=== PATIENT | female | born 1935 | race Caucasian/White ===

== ENCOUNTER 2016-12-29 09:57 | Outpatient (CLI) | payer MEDICARE ==
[2016-12-29 12:42] LABS: #Basophils 0.1 thou/uL (0.0-0.2); #Eosinphils 0.2 thou/uL (0.0-0.7); #Lymphocytes 2.2 thou/uL (1.20-3.40); #Monocytes 0.2 thou/uL (0.11-0.59); #Neutrophils 2.5 thou/uL (1.40-6.50); %Basophils 2.2 % (0.0-1.0); %Eosinophils 3.3 % (0.0-10.0); %Lymphocytes 41.9 % (21.0-51.0); %Monocytes 4.6 % (0.0-10.0); Hematocrit 38.2 % (36.0-47.0); Mean Platelet Volume 6.6 fL (7.4-10.4); Red Blood Cell (RBC) Count 4.11 mill/uL (4.20-5.40); White Blood Cell (WBC) Count 5.1 thou/uL (4.8-10.8)
[2016-12-29 12:53] LABS: Hemoglobin A1c 5.3 % (4.0-6.0)
== END 2016-12-29 09:58 ==
LOC: NAVSJIPCSP 09:57
PROVIDERS: ATTEND Internal Medicine
DX: E78.5 Hyperlipidemia, unspecified (principal); J44.9 Chronic obstructive pulmonary disease, unspecified; E11.51 Type 2 diabetes mellitus with diabetic peripheral angiopathy without gangrene; D50.9 Iron deficiency anemia, unspecified; Z79.899 Other long term (current) drug therapy
CPT/HCPCS: 36415; 80061; 83036; 85025

== ENCOUNTER 2017-04-30 09:10 | Outpatient (CLI) | payer MEDICARE ==
[2017-04-30 12:28] LABS: #Basophils 0.1 thou/uL (0.0-0.2); #Eosinphils 0.2 thou/uL (0.0-0.7); #Monocytes 0.3 thou/uL (0.11-0.59); #Neutrophils 2.6 thou/uL (1.40-6.50); %Basophils 2.3 % (0.0-1.0); %Eosinophils 3.2 % (0.0-10.0); %Lymphocytes 38.8 % (21.0-51.0); %Neutrophils 49.6 % (42.0-75.0); Hemoglobin 11.5 g/dL (12.0-16.0); Mean Corpuscular HGB CONC 30.5 g/dL (32.0-36.0); Mean Corpuscular Hemoglobin 27.7 pg (27.0-31.0); Mean Corpuscular Volume 90.9 fl (81.0-99.0); Mean Platelet Volume 6.3 fL (7.4-10.4); Platelet Count 199 thou/uL (130-400); RBC Distribution Width 14.4 % (11.5-14.5); Red Blood Cell (RBC) Count 4.15 mill/uL (4.20-5.40); White Blood Cell (WBC) Count 5.2 thou/uL (4.8-10.8)
[2017-04-30 13:03] LABS: Hemoglobin A1c 5.6 % (4.0-6.0)
[2017-04-30 13:09] LABS: Cardiac Risk 2.2 (Less than 4.5)
== END 2017-04-30 09:11 ==
LOC: NAVSJIPCSP 09:10
PROVIDERS: ATTEND Internal Medicine
DX: E78.5 Hyperlipidemia, unspecified (principal); D50.9 Iron deficiency anemia, unspecified; E11.51 Type 2 diabetes mellitus with diabetic peripheral angiopathy without gangrene; Z79.899 Other long term (current) drug therapy
CPT/HCPCS: 36415; 80061; 83036; 85025

== ENCOUNTER 2021-05-16 10:40 | Inpatient (IN) | payer MEDICARE ==
[2021-05-16] MEDS ORDERED: ACETAMINOPHEN WITH CODEINE PO PRN (13:44)
[2021-05-16] MEDS: Gabapentin 300 MG CAP PO SCH ×2 (17:11→20:53)
[2021-05-16] MEDS: Budesonide 0.5 MG/2 ML NEB NEB SCH (18:20)
[2021-05-16] MEDS: Nicotine 7 MG PATCH TOP SCH (18:21)
[2021-05-16] MEDS: Enoxaparin Sodium 30 MG/0.3 ML SYRINGE SC SCH (20:53)
[2021-05-17] MEDS: Levothyroxine Sodium 75 MCG TAB PO SCH (05:59)
[2021-05-17] MEDS: Budesonide 0.5 MG/2 ML NEB NEB SCH ×2 (05:59→17:35)
[2021-05-17 06:50] LABS: Bilirubin Negative (Negative); Blood, Urine Negative (Negative); Clarity Slightly Cloudy (Clear); Glucose, Urine (Dipstick) Negative (Negative); Ketone, Urine Negative (Negative); Leukocyte Trace (Negative); Nitrite Negative (Negative); Protein, Urine (Dipstick) 30 mg/dL (Neg-Trace); pH, Urine 7.5 (5.0-9.0)
[2021-05-17 07:00] LABS: Bacteria/HPF 1+ HPF (None Seen); RBC/HPF None Seen HPF (0-3); Renal Epithelial 0-3 HPF (None Seen)
[2021-05-17 07:30] LABS: #Lymphocytes 1.3 thou/uL (1.20-3.40); #Monocytes 0.6 thou/uL (0.11-0.59); %Basophils 0.5 % (0.0-1.0); %Eosinophils 0.4 % (0.0-10.0); %Lymphocytes 14.5 % (21.0-51.0); %Monocytes 6.7 % (0.0-10.0); Hemoglobin 9.3 g/dL (12.0-16.0); Mean Corpuscular HGB CONC 31.8 g/dL (32.0-36.0); Mean Corpuscular Hemoglobin 30.4 pg (27.0-31.0); Mean Corpuscular Volume 95.3 fL (78.0-98.0); Mean Platelet Volume 7.6 fL (7.4-10.4); Platelet Count 201 thou/uL (130-400); RBC Distribution Width 14.3 % (11.5-14.5); Red Blood Cell (RBC) Count 3.05 mill/uL (4.20-5.40)
[2021-05-17 07:45] LABS: ALT (SGPT) 29 U/L (8-55); AST (SGOT) 25 U/L (5-34); Albumin 2.7 g/dL (3.4-4.8); Alkaline Phosphatase 75 U/L (40-110); Anion Gap 10 mmol/L (10-20); BUN (Urea Nitrogen) 27 mg/dL (9.8-20.1); Bilirubin, Total 1.2 mg/dL (0.2-1.2); Calc. Creatinine Clearance 37 mL/min (70-130); Calcium 8.4 mg/dL (7.8-10.44); Carbon Dioxide 27 mmol/L (23-31); Chloride 102 mmol/L (98-107); Globulin 2.1 g/dL (2.4-3.5); Glucose 111 mg/dL (83-110); Potassium 4.2 mmol/L (3.5-5.1); Protein, Total 4.8 g/dL (5.8-8.1); Sodium 135 mmol/L (136-145)
[2021-05-17] MEDS: Aspirin 81 mg Enteric Coated Tablet PO SCH (08:57)
[2021-05-17] MEDS: Lidocaine 5% Patch TD SCH (08:57)
[2021-05-17] MEDS: Atorvastatin Calcium 40 MG TAB PO SCH (08:58)
[2021-05-17] MEDS: Gabapentin 300 MG CAP PO SCH ×3 (08:58→21:06)
[2021-05-17] MEDS ORDERED: Lisinopril 20 MG TAB PO SCH (09:00)
[2021-05-17] MEDS: Acetaminophen/Codeine 30-300mg Tablet PO PRN (10:33)
[2021-05-17 11:19] LABS: Hemoglobin A1c 5.5 % (4.0-6.0)
[2021-05-17] MEDS: Nicotine 7 MG PATCH TOP SCH (17:34)
[2021-05-17] MEDS: LIDOCAINE Patch Removal TOP SCH (21:07)
[2021-05-17] MEDS ORDERED: Sodium Chloride 0.9% 250 ML 250 ML IVPB SCH (21:30)
[2021-05-17 21:46] LABS: Lactic Acid 1.8 mmol/L (0.5-2.2)
[2021-05-17] MEDS: Enoxaparin Sodium 30 MG/0.3 ML SYRINGE SC SCH (21:54)
[2021-05-17] MEDS ORDERED: Sodium Chloride 0.9% 1,000 ML IV SCH (22:30)
[2021-05-18] MEDS: Acetaminophen/Codeine 30-300mg Tablet PO PRN ×4 (05:22→20:45)
[2021-05-18] MEDS: Budesonide 0.5 MG/2 ML NEB NEB SCH ×2 (05:23→17:56)
[2021-05-18] MEDS: Levothyroxine Sodium 75 MCG TAB PO SCH (05:23)
[2021-05-18] MEDS: Lidocaine 5% Patch TD SCH (08:49)
[2021-05-18] MEDS: Atorvastatin Calcium 40 MG TAB PO SCH (08:50)
[2021-05-18] MEDS: Aspirin 81 mg Enteric Coated Tablet PO SCH (08:50)
[2021-05-18 13:12] LABS: #Eosinphils 0.1 thou/uL (0.0-0.7); #Lymphocytes 0.8 thou/uL (1.20-3.40); #Monocytes 0.4 thou/uL (0.11-0.59); #Neutrophils 8.7 thou/uL (1.40-6.50); %Basophils 0.2 % (0.0-1.0); %Eosinophils 0.9 % (0.0-10.0); %Lymphocytes 7.5 % (21.0-51.0); %Neutrophils 87.4 % (42.0-75.0); Hemoglobin 8.5 g/dL (12.0-16.0); Mean Corpuscular HGB CONC 30.3 g/dL (32.0-36.0); Mean Corpuscular Hemoglobin 30.1 pg (27.0-31.0); Mean Corpuscular Volume 99.3 fL (78.0-98.0); Mean Platelet Volume 7.4 fL (7.4-10.4); Platelet Count 214 thou/uL (130-400); RBC Distribution Width 15.3 % (11.5-14.5); Red Blood Cell (RBC) Count 2.82 mill/uL (4.20-5.40)
[2021-05-18 13:24] LABS: Lactic Acid 3.1 mmol/L (0.5-2.2)
[2021-05-18 13:27] LABS: Anion Gap 13 mmol/L (10-20); BUN (Urea Nitrogen) 25 mg/dL (9.8-20.1); Calc. Creatinine Clearance 39 mL/min (70-130); Calcium 7.8 mg/dL (7.8-10.44); Carbon Dioxide 22 mmol/L (23-31); Chloride 104 mmol/L (98-107); Glucose 175 mg/dL (83-110); Potassium 4.2 mmol/L (3.5-5.1); Sodium 135 mmol/L (136-145)
[2021-05-18] MEDS ORDERED: Sodium Chloride 0.9% 500 ML IV SCH (15:00)
[2021-05-18] MEDS: cefTRIAXone\\ROCEPHIN 1 GM in Sodium Chloride 0.9% 100 ML IVPB SCH (15:18)
[2021-05-18] MEDS: Sodium Chloride 0.9% 1,000 ML IV SCH (15:19)
[2021-05-18 17:04] LABS: Bilirubin Negative (Negative); Blood, Urine Negative (Negative); Clarity Clear (Clear); Glucose, Urine (Dipstick) Negative (Negative); Ketone, Urine Negative (Negative); Leukocyte Negative (Negative); Nitrite Negative (Negative); Protein, Urine (Dipstick) Trace mg/dL (Neg-Trace); Specific Gravity, Urine 1.015 (1.005-1.030)
[2021-05-18] MEDS: Nicotine 7 MG PATCH TOP SCH (17:16)
[2021-05-18 18:16] LABS: Squamous Epithelial 0-3 HPF (0-3); Urine Culture Reflex No No
[2021-05-18] MEDS: Enoxaparin Sodium 30 MG/0.3 ML SYRINGE SC SCH (20:46)
[2021-05-18] MEDS: LIDOCAINE Patch Removal TOP SCH (20:51)
[2021-05-19] MEDS: Acetaminophen/Codeine 30-300mg Tablet PO PRN ×5 (03:26→22:32)
[2021-05-19] MEDS: Sodium Chloride 0.9% 1,000 ML IV SCH (03:58)
[2021-05-19] MEDS: Levothyroxine Sodium 75 MCG TAB PO SCH (05:07)
[2021-05-19] MEDS: Budesonide 0.5 MG/2 ML NEB NEB SCH ×2 (05:07→17:28)
[2021-05-19] MEDS: Aspirin 81 mg Enteric Coated Tablet PO SCH (09:15)
[2021-05-19] MEDS: Lidocaine 5% Patch TD SCH (09:15)
[2021-05-19] MEDS: Atorvastatin Calcium 40 MG TAB PO SCH (09:15)
[2021-05-19 09:20] LABS: ALT (SGPT) 19 U/L (8-55); AST (SGOT) 17 U/L (5-34); Albumin 2.4 g/dL (3.4-4.8); Alkaline Phosphatase 77 U/L (40-110); Anion Gap 12 mmol/L (10-20); BUN (Urea Nitrogen) 20 mg/dL (9.8-20.1); Bilirubin, Total 0.8 mg/dL (0.2-1.2); Calc. Creatinine Clearance 43 mL/min (70-130); Calcium 7.7 mg/dL (7.8-10.44); Carbon Dioxide 22 mmol/L (23-31); Chloride 104 mmol/L (98-107); Globulin 2.1 g/dL (2.4-3.5); Glucose 182 mg/dL (83-110); Potassium 4.4 mmol/L (3.5-5.1); Protein, Total 4.5 g/dL (5.8-8.1); Sodium 134 mmol/L (136-145)
[2021-05-19 09:29] LABS: #Basophils 0.1 thou/uL (0.0-0.2); #Eosinphils 0.1 thou/uL (0.0-0.7); #Lymphocytes 0.6 thou/uL (1.20-3.40); #Monocytes 0.3 thou/uL (0.11-0.59); #Neutrophils 7.7 thou/uL (1.40-6.50); %Basophils 0.6 % (0.0-1.0); %Eosinophils 1.1 % (0.0-10.0); %Monocytes 3.6 % (0.0-10.0); %Neutrophils 87.7 % (42.0-75.0); Hemoglobin 9.1 g/dL (12.0-16.0); Mean Corpuscular HGB CONC 30.9 g/dL (32.0-36.0); Mean Corpuscular Hemoglobin 30.5 pg (27.0-31.0); Mean Corpuscular Volume 98.7 fL (78.0-98.0); Mean Platelet Volume 7.5 fL (7.4-10.4); Platelet Count 183 thou/uL (130-400); RBC Distribution Width 15.5 % (11.5-14.5); Red Blood Cell (RBC) Count 2.97 mill/uL (4.20-5.40); White Blood Cell (WBC) Count 8.7 thou/uL (4.8-10.8)
[2021-05-19] MEDS: cefTRIAXone\\ROCEPHIN 1 GM in Sodium Chloride 0.9% 100 ML IVPB SCH (16:59)
[2021-05-19] MEDS: Nicotine 7 MG PATCH TOP SCH (17:28)
[2021-05-19] MEDS: Enoxaparin Sodium 30 MG/0.3 ML SYRINGE SC SCH (20:47)
[2021-05-19] MEDS: LIDOCAINE Patch Removal TOP SCH (20:48)
[2021-05-20] MEDS: Acetaminophen/Codeine 30-300mg Tablet PO PRN ×3 (03:08→11:01)
[2021-05-20] MEDS: Levothyroxine Sodium 75 MCG TAB PO SCH (06:06)
[2021-05-20] MEDS: Atorvastatin Calcium 40 MG TAB PO SCH (09:41)
[2021-05-20] MEDS: Aspirin 81 mg Enteric Coated Tablet PO SCH (09:41)
[2021-05-20] MEDS: Lidocaine 5% Patch TD SCH (09:41)
[2021-05-20] MEDS: Nicotine 7 MG PATCH TOP SCH (17:59)
[2021-05-20] MEDS: Budesonide 0.5 MG/2 ML NEB NEB SCH (18:00)
[2021-05-20] MEDS: HYDROcodone/Acetaminophen 5/325 mg Tablet PO PRN (18:02)
[2021-05-20] MEDS: Gabapentin 300 MG CAP PO PRN (21:13)
[2021-05-20] MEDS: LIDOCAINE Patch Removal TOP SCH (21:13)
[2021-05-20] MEDS: Enoxaparin Sodium 30 MG/0.3 ML SYRINGE SC SCH (21:14)
[2021-05-21] MEDS: HYDROcodone/Acetaminophen 5/325 mg Tablet PO PRN ×3 (05:55→15:01)
[2021-05-21] MEDS: Levothyroxine Sodium 75 MCG TAB PO SCH (05:55)
[2021-05-21] MEDS: Budesonide 0.5 MG/2 ML NEB NEB SCH ×2 (05:56→17:42)
[2021-05-21] MEDS: Lidocaine 5% Patch TD SCH (09:08)
[2021-05-21] MEDS: Atorvastatin Calcium 40 MG TAB PO SCH (09:09)
[2021-05-21] MEDS: Aspirin 81 mg Enteric Coated Tablet PO SCH (09:09)
[2021-05-21] MEDS: Nicotine 7 MG PATCH TOP SCH (17:38)
[2021-05-21] MEDS: Enoxaparin Sodium 30 MG/0.3 ML SYRINGE SC SCH (20:11)
[2021-05-21] MEDS: LIDOCAINE Patch Removal TOP SCH (20:13)
[2021-05-21] MEDS: Gabapentin 300 MG CAP PO PRN (22:19)
[2021-05-22] MEDS: Levothyroxine Sodium 75 MCG TAB PO SCH (06:31)
[2021-05-22] MEDS: Budesonide 0.5 MG/2 ML NEB NEB SCH ×2 (06:38→17:53)
[2021-05-22] MEDS: Lidocaine 5% Patch TD SCH (08:13)
[2021-05-22] MEDS: Atorvastatin Calcium 40 MG TAB PO SCH (08:13)
[2021-05-22] MEDS: Aspirin 81 mg Enteric Coated Tablet PO SCH (08:13)
[2021-05-22] MEDS: HYDROcodone/Acetaminophen 5/325 mg Tablet PO PRN ×2 (10:43→23:27)
[2021-05-22] MEDS: Gabapentin 300 MG CAP PO PRN (10:48)
[2021-05-22] MEDS: Nicotine 7 MG PATCH TOP SCH (17:53)
[2021-05-22] MEDS: LIDOCAINE Patch Removal TOP SCH (21:02)
[2021-05-22] MEDS: Enoxaparin Sodium 30 MG/0.3 ML SYRINGE SC SCH (21:02)
[2021-05-23] MEDS: Budesonide 0.5 MG/2 ML NEB NEB SCH ×2 (06:38→17:57)
[2021-05-23] MEDS: Levothyroxine Sodium 75 MCG TAB PO SCH (06:39)
[2021-05-23] MEDS: HYDROcodone/Acetaminophen 5/325 mg Tablet PO PRN ×3 (07:59→21:00)
[2021-05-23] MEDS: Gabapentin 300 MG CAP PO PRN ×2 (08:00→21:01)
[2021-05-23] MEDS: Atorvastatin Calcium 40 MG TAB PO SCH (08:01)
[2021-05-23] MEDS: Lidocaine 5% Patch TD SCH (08:01)
[2021-05-23] MEDS: Aspirin 81 mg Enteric Coated Tablet PO SCH (08:01)
[2021-05-23] MEDS: Nicotine 7 MG PATCH TOP SCH (18:02)
[2021-05-23] MEDS: Enoxaparin Sodium 30 MG/0.3 ML SYRINGE SC SCH (20:59)
[2021-05-23] MEDS: LIDOCAINE Patch Removal TOP SCH (21:00)
[2021-05-24] MEDS: Budesonide 0.5 MG/2 ML NEB NEB SCH ×2 (05:31→18:22)
[2021-05-24] MEDS: Levothyroxine Sodium 75 MCG TAB PO SCH (05:31)
[2021-05-24] MEDS: HYDROcodone/Acetaminophen 5/325 mg Tablet PO PRN ×2 (08:25→20:53)
[2021-05-24] MEDS: Gabapentin 300 MG CAP PO PRN ×2 (08:27→20:52)
[2021-05-24] MEDS: Aspirin 81 mg Enteric Coated Tablet PO SCH (08:28)
[2021-05-24] MEDS: Atorvastatin Calcium 40 MG TAB PO SCH (08:28)
[2021-05-24] MEDS: Lidocaine 5% Patch TD SCH (08:31)
[2021-05-24] MEDS: Nicotine 7 MG PATCH TOP SCH (17:53)
[2021-05-24] MEDS: Enoxaparin Sodium 30 MG/0.3 ML SYRINGE SC SCH (20:52)
[2021-05-24] MEDS: LIDOCAINE Patch Removal TOP SCH (21:09)
[2021-05-25] MEDS: Levothyroxine Sodium 75 MCG TAB PO SCH (05:23)
[2021-05-25] MEDS: Budesonide 0.5 MG/2 ML NEB NEB SCH ×2 (05:25→18:17)
[2021-05-25] MEDS: HYDROcodone/Acetaminophen 5/325 mg Tablet PO PRN ×2 (08:47→21:28)
[2021-05-25] MEDS: Lidocaine 5% Patch TD SCH (08:48)
[2021-05-25] MEDS: Aspirin 81 mg Enteric Coated Tablet PO SCH (08:48)
[2021-05-25] MEDS: Atorvastatin Calcium 40 MG TAB PO SCH (08:48)
[2021-05-25] MEDS: Gabapentin 300 MG CAP PO PRN ×2 (08:52→21:27)
[2021-05-25] MEDS: Nicotine 7 MG PATCH TOP SCH (18:16)
[2021-05-25] MEDS: Melatonin 3 MG TAB PO SCH (21:27)
[2021-05-25] MEDS: Enoxaparin Sodium 30 MG/0.3 ML SYRINGE SC SCH (21:29)
[2021-05-25] MEDS: LIDOCAINE Patch Removal TOP SCH (21:29)
[2021-05-26] MEDS: Levothyroxine Sodium 75 MCG TAB PO SCH (05:33)
[2021-05-26] MEDS: Budesonide 0.5 MG/2 ML NEB NEB SCH ×2 (05:33→18:15)
[2021-05-26] MEDS: Aspirin 81 mg Enteric Coated Tablet PO SCH (09:01)
[2021-05-26] MEDS: Lidocaine 5% Patch TD SCH (09:02)
[2021-05-26] MEDS: Atorvastatin Calcium 40 MG TAB PO SCH (09:02)
[2021-05-26] MEDS: Gabapentin 300 MG CAP PO PRN ×2 (09:02→20:58)
[2021-05-26] MEDS: HYDROcodone/Acetaminophen 5/325 mg Tablet PO PRN ×3 (09:03→20:54)
[2021-05-26] MEDS: Nicotine 7 MG PATCH TOP SCH (16:01)
[2021-05-26] MEDS: Melatonin 3 MG TAB PO SCH (20:50)
[2021-05-26] MEDS: Enoxaparin Sodium 30 MG/0.3 ML SYRINGE SC SCH (20:51)
[2021-05-26] MEDS: LIDOCAINE Patch Removal TOP SCH (20:51)
[2021-05-27] MEDS: Levothyroxine Sodium 75 MCG TAB PO SCH (05:12)
[2021-05-27] MEDS: Budesonide 0.5 MG/2 ML NEB NEB SCH ×2 (05:12→17:46)
[2021-05-27 05:21] LABS: #Basophils 0.1 thou/uL (0.0-0.2); #Eosinphils 0.1 thou/uL (0.0-0.7); #Lymphocytes 0.5 thou/uL (1.20-3.40); #Monocytes 0.3 thou/uL (0.11-0.59); #Neutrophils 1.9 thou/uL (1.40-6.50); %Basophils 2.2 % (0.0-1.0); %Lymphocytes 17.5 % (21.0-51.0); %Neutrophils 68.3 % (42.0-75.0); Hemoglobin 8.4 g/dL (12.0-16.0); Hypochromia SLIGHT = 6-15 cells (100X) (0-5/hpf); MDiff Complete? YES; Mean Corpuscular HGB CONC 30.4 g/dL (32.0-36.0); Mean Corpuscular Hemoglobin 29.4 pg (27.0-31.0); Mean Corpuscular Volume 96.6 fL (78.0-98.0); Platelet Count 93 thou/uL (130-400); Platelet Morphology Comment Appears Decreased; Polychromasia SLIGHT = 2-3 cells (100X) (0-2/hpf); RBC Distribution Width 16.4 % (11.5-14.5); Red Blood Cell (RBC) Count 2.85 mill/uL (4.20-5.40); White Blood Cell (WBC) Count 2.8 thou/uL (4.8-10.8)
[2021-05-27 05:23] LABS: Anion Gap 11 mmol/L (10-20); BUN (Urea Nitrogen) 17 mg/dL (9.8-20.1); Calc. Creatinine Clearance 35 mL/min (70-130); Calcium 6.8 mg/dL (7.8-10.44); Carbon Dioxide 25 mmol/L (23-31); Chloride 105 mmol/L (98-107); Glucose 114 mg/dL (83-110); Potassium 4.7 mmol/L (3.5-5.1); Sodium 136 mmol/L (136-145)
[2021-05-27] MEDS: Atorvastatin Calcium 40 MG TAB PO SCH (08:28)
[2021-05-27] MEDS: Aspirin 81 mg Enteric Coated Tablet PO SCH (08:28)
[2021-05-27] MEDS: HYDROcodone/Acetaminophen 5/325 mg Tablet PO PRN ×3 (08:28→21:26)
[2021-05-27] MEDS: Lidocaine 5% Patch TD SCH (08:28)
[2021-05-27] MEDS: Gabapentin 300 MG CAP PO PRN ×2 (09:10→21:33)
[2021-05-27] MEDS: Nicotine 7 MG PATCH TOP SCH (17:45)
[2021-05-27] MEDS: Melatonin 3 MG TAB PO SCH (21:26)
[2021-05-27] MEDS: Enoxaparin Sodium 30 MG/0.3 ML SYRINGE SC SCH (21:27)
[2021-05-27] MEDS: LIDOCAINE Patch Removal TOP SCH (21:27)
[2021-05-28] MEDS: Levothyroxine Sodium 75 MCG TAB PO SCH (06:08)
[2021-05-28] MEDS: Budesonide 0.5 MG/2 ML NEB NEB SCH ×2 (06:09→18:05)
[2021-05-28] MEDS: Atorvastatin Calcium 40 MG TAB PO SCH (08:22)
[2021-05-28] MEDS: Lidocaine 5% Patch TD SCH (08:22)
[2021-05-28] MEDS: Aspirin 81 mg Enteric Coated Tablet PO SCH (08:22)
[2021-05-28] MEDS: HYDROcodone/Acetaminophen 5/325 mg Tablet PO PRN ×2 (08:23→20:34)
[2021-05-28] MEDS: Gabapentin 300 MG CAP PO PRN ×2 (08:25→20:33)
[2021-05-28] MEDS: Nicotine 7 MG PATCH TOP SCH (18:03)
[2021-05-28] MEDS: Melatonin 3 MG TAB PO SCH (20:31)
[2021-05-28] MEDS: Enoxaparin Sodium 30 MG/0.3 ML SYRINGE SC SCH (20:35)
[2021-05-28] MEDS: LIDOCAINE Patch Removal TOP SCH (20:35)
[2021-05-29] MEDS: Levothyroxine Sodium 75 MCG TAB PO SCH (05:22)
[2021-05-29] MEDS: Budesonide 0.5 MG/2 ML NEB NEB SCH ×2 (05:22→18:38)
[2021-05-29] MEDS: Atorvastatin Calcium 40 MG TAB PO SCH (08:45)
[2021-05-29] MEDS: Gabapentin 300 MG CAP PO PRN ×2 (08:45→21:08)
[2021-05-29] MEDS: Lidocaine 5% Patch TD SCH (08:45)
[2021-05-29] MEDS: Aspirin 81 mg Enteric Coated Tablet PO SCH (08:45)
[2021-05-29] MEDS: HYDROcodone/Acetaminophen 5/325 mg Tablet PO PRN ×3 (08:46→21:08)
[2021-05-29] MEDS: Nicotine 7 MG PATCH TOP SCH (18:37)
[2021-05-29] MEDS: Enoxaparin Sodium 30 MG/0.3 ML SYRINGE SC SCH (21:07)
[2021-05-29] MEDS: Melatonin 3 MG TAB PO SCH (21:09)
[2021-05-29] MEDS: LIDOCAINE Patch Removal TOP SCH (21:09)
[2021-05-30] MEDS: Levothyroxine Sodium 75 MCG TAB PO SCH (06:37)
[2021-05-30] MEDS: Budesonide 0.5 MG/2 ML NEB NEB SCH ×2 (06:37→17:36)
[2021-05-30] MEDS: Gabapentin 300 MG CAP PO PRN ×2 (08:39→20:54)
[2021-05-30] MEDS: Atorvastatin Calcium 40 MG TAB PO SCH (08:39)
[2021-05-30] MEDS: Aspirin 81 mg Enteric Coated Tablet PO SCH (08:39)
[2021-05-30] MEDS: HYDROcodone/Acetaminophen 5/325 mg Tablet PO PRN ×2 (08:40→17:08)
[2021-05-30] MEDS: Lidocaine 5% Patch TD SCH (08:41)
[2021-05-30] MEDS: Nicotine 7 MG PATCH TOP SCH (17:08)
[2021-05-30] MEDS: Melatonin 3 MG TAB PO SCH (20:54)
[2021-05-30] MEDS: Enoxaparin Sodium 30 MG/0.3 ML SYRINGE SC SCH (20:54)
[2021-05-30] MEDS: LIDOCAINE Patch Removal TOP SCH (21:12)
[2021-05-31] MEDS: Levothyroxine Sodium 75 MCG TAB PO SCH (05:58)
[2021-05-31] MEDS: Budesonide 0.5 MG/2 ML NEB NEB SCH ×2 (05:58→17:41)
[2021-05-31 07:49] LABS: #Basophils 0.1 thou/uL (0.0-0.2); #Eosinphils 0.1 thou/uL (0.0-0.7); #Lymphocytes 0.6 thou/uL (1.20-3.40); #Monocytes 0.2 thou/uL (0.11-0.59); #Neutrophils 1.4 thou/uL (1.40-6.50); %Basophils 2.4 % (0.0-1.0); %Eosinophils 4.1 % (0.0-10.0); %Lymphocytes 26.1 % (21.0-51.0); %Neutrophils 57.4 % (42.0-75.0); Hemoglobin 8.9 g/dL (12.0-16.0); Mean Corpuscular HGB CONC 30.8 g/dL (32.0-36.0); Mean Corpuscular Hemoglobin 30.3 pg (27.0-31.0); Mean Corpuscular Volume 98.4 fL (78.0-98.0); Mean Platelet Volume 6.9 fL (7.4-10.4); Platelet Count 97 thou/uL (130-400); RBC Distribution Width 17.4 % (11.5-14.5); Red Blood Cell (RBC) Count 2.94 mill/uL (4.20-5.40); White Blood Cell (WBC) Count 2.4 thou/uL (4.8-10.8)
[2021-05-31 07:58] LABS: Anion Gap 13 mmol/L (10-20); BUN (Urea Nitrogen) 17 mg/dL (9.8-20.1); Calc. Creatinine Clearance 42 mL/min (70-130); Calcium 6.6 mg/dL (7.8-10.44); Carbon Dioxide 26 mmol/L (23-31); Chloride 104 mmol/L (98-107); Glucose 113 mg/dL (83-110); Potassium 4.5 mmol/L (3.5-5.1); Sodium 138 mmol/L (136-145)
[2021-05-31] MEDS: Lidocaine 5% Patch TD SCH (08:14)
[2021-05-31] MEDS: Atorvastatin Calcium 40 MG TAB PO SCH (08:14)
[2021-05-31] MEDS: Aspirin 81 mg Enteric Coated Tablet PO SCH (08:14)
[2021-05-31] MEDS: HYDROcodone/Acetaminophen 5/325 mg Tablet PO PRN ×4 (08:15→20:45)
[2021-05-31] MEDS: Gabapentin 300 MG CAP PO PRN ×2 (08:19→20:45)
[2021-05-31] MEDS: Nicotine 7 MG PATCH TOP SCH (17:42)
[2021-05-31] MEDS: Melatonin 3 MG TAB PO SCH (20:44)
[2021-05-31] MEDS: LIDOCAINE Patch Removal TOP SCH (20:46)
[2021-06-01] MEDS: Levothyroxine Sodium 75 MCG TAB PO SCH (06:00)
[2021-06-01] MEDS: Budesonide 0.5 MG/2 ML NEB NEB SCH ×2 (06:01→17:19)
[2021-06-01] MEDS: Atorvastatin Calcium 40 MG TAB PO SCH (08:35)
[2021-06-01] MEDS: Aspirin 81 mg Enteric Coated Tablet PO SCH (08:35)
[2021-06-01] MEDS: Lidocaine 5% Patch TD SCH (08:35)
[2021-06-01] MEDS: HYDROcodone/Acetaminophen 5/325 mg Tablet PO PRN ×4 (08:41→20:43)
[2021-06-01] MEDS: Gabapentin 300 MG CAP PO PRN ×2 (08:41→20:42)
[2021-06-01] MEDS: Nicotine 7 MG PATCH TOP SCH (17:18)
[2021-06-01] MEDS: Melatonin 3 MG TAB PO SCH (20:42)
[2021-06-01] MEDS: LIDOCAINE Patch Removal TOP SCH (20:47)
[2021-06-02] MEDS: Budesonide 0.5 MG/2 ML NEB NEB SCH ×2 (06:11→17:43)
[2021-06-02] MEDS: Levothyroxine Sodium 75 MCG TAB PO SCH (06:11)
[2021-06-02] MEDS: Gabapentin 300 MG CAP PO PRN ×2 (08:43→20:52)
[2021-06-02] MEDS: HYDROcodone/Acetaminophen 5/325 mg Tablet PO PRN ×2 (08:43→20:51)
[2021-06-02] MEDS: Aspirin 81 mg Enteric Coated Tablet PO SCH (08:45)
[2021-06-02] MEDS: Atorvastatin Calcium 40 MG TAB PO SCH (08:45)
[2021-06-02] MEDS: Lidocaine 5% Patch TD SCH (08:45)
[2021-06-02] MEDS: Nicotine 7 MG PATCH TOP SCH (17:42)
[2021-06-02] MEDS: Melatonin 3 MG TAB PO SCH (20:52)
[2021-06-02] MEDS: LIDOCAINE Patch Removal TOP SCH (20:55)
[2021-06-03] MEDS: Budesonide 0.5 MG/2 ML NEB NEB SCH ×2 (05:33→17:40)
[2021-06-03] MEDS: Levothyroxine Sodium 75 MCG TAB PO SCH (05:33)
[2021-06-03] MEDS: HYDROcodone/Acetaminophen 5/325 mg Tablet PO PRN ×3 (08:44→21:05)
[2021-06-03] MEDS: Atorvastatin Calcium 40 MG TAB PO SCH (08:44)
[2021-06-03] MEDS: Aspirin 81 mg Enteric Coated Tablet PO SCH (08:44)
[2021-06-03] MEDS: Lidocaine 5% Patch TD SCH (08:44)
[2021-06-03] MEDS: Gabapentin 300 MG CAP PO PRN ×2 (08:45→21:05)
[2021-06-03] MEDS: Nicotine 7 MG PATCH TOP SCH (17:39)
[2021-06-03] MEDS: Melatonin 3 MG TAB PO SCH (21:04)
[2021-06-03] MEDS: LIDOCAINE Patch Removal TOP SCH (21:28)
[2021-06-04] MEDS: Levothyroxine Sodium 75 MCG TAB PO SCH (06:22)
[2021-06-04] MEDS: Budesonide 0.5 MG/2 ML NEB NEB SCH ×2 (06:24→17:45)
[2021-06-04] MEDS: HYDROcodone/Acetaminophen 5/325 mg Tablet PO PRN ×3 (08:18→21:56)
[2021-06-04] MEDS: Lidocaine 5% Patch TD SCH (08:18)
[2021-06-04] MEDS: Atorvastatin Calcium 40 MG TAB PO SCH (08:18)
[2021-06-04] MEDS: Aspirin 81 mg Enteric Coated Tablet PO SCH (08:18)
[2021-06-04] MEDS: Gabapentin 300 MG CAP PO PRN ×2 (08:19→21:56)
[2021-06-04] MEDS: Nicotine 7 MG PATCH TOP SCH (17:45)
[2021-06-04] MEDS: LIDOCAINE Patch Removal TOP SCH (21:56)
[2021-06-04] MEDS: Melatonin 3 MG TAB PO SCH (21:56)
[2021-06-05] MEDS: Budesonide 0.5 MG/2 ML NEB NEB SCH ×2 (06:04→18:06)
[2021-06-05] MEDS: Levothyroxine Sodium 75 MCG TAB PO SCH (06:04)
[2021-06-05] MEDS: Lidocaine 5% Patch TD SCH (08:21)
[2021-06-05] MEDS: Atorvastatin Calcium 40 MG TAB PO SCH (08:21)
[2021-06-05] MEDS: Aspirin 81 mg Enteric Coated Tablet PO SCH (08:21)
[2021-06-05] MEDS: HYDROcodone/Acetaminophen 5/325 mg Tablet PO PRN ×3 (08:21→20:27)
[2021-06-05] MEDS: Gabapentin 300 MG CAP PO PRN ×2 (08:21→20:26)
[2021-06-05] MEDS: Nicotine 7 MG PATCH TOP SCH (18:06)
[2021-06-05] MEDS: Melatonin 3 MG TAB PO SCH (20:26)
[2021-06-05] MEDS: LIDOCAINE Patch Removal TOP SCH (20:33)
[2021-06-06] MEDS: Levothyroxine Sodium 75 MCG TAB PO SCH (06:01)
[2021-06-06] MEDS: Budesonide 0.5 MG/2 ML NEB NEB SCH ×2 (06:01→17:31)
[2021-06-06] MEDS: Aspirin 81 mg Enteric Coated Tablet PO SCH (08:23)
[2021-06-06] MEDS: Atorvastatin Calcium 40 MG TAB PO SCH (08:23)
[2021-06-06] MEDS: Lidocaine 5% Patch TD SCH (08:23)
[2021-06-06] MEDS: Gabapentin 300 MG CAP PO PRN ×2 (08:23→21:28)
[2021-06-06] MEDS: HYDROcodone/Acetaminophen 5/325 mg Tablet PO PRN ×2 (08:23→21:27)
[2021-06-06] MEDS: Nicotine 7 MG PATCH TOP SCH (17:31)
[2021-06-06] MEDS: Melatonin 3 MG TAB PO SCH (21:27)
[2021-06-06] MEDS: LIDOCAINE Patch Removal TOP SCH (21:30)
[2021-06-07] MEDS: Levothyroxine Sodium 75 MCG TAB PO SCH (05:30)
[2021-06-07] MEDS: Budesonide 0.5 MG/2 ML NEB NEB SCH ×2 (05:37→17:41)
[2021-06-07 06:30] LABS: #Basophils 0.1 thou/uL (0.0-0.2); #Eosinphils 0.1 thou/uL (0.0-0.7); #Lymphocytes 1.1 thou/uL (1.20-3.40); #Monocytes 0.3 thou/uL (0.11-0.59); %Basophils 2.9 % (0.0-1.0); %Eosinophils 2.4 % (0.0-10.0); %Lymphocytes 42.8 % (21.0-51.0); %Monocytes 10.3 % (0.0-10.0); %Neutrophils 41.6 % (42.0-75.0); Hemoglobin 9.3 g/dL (12.0-16.0); Mean Corpuscular HGB CONC 29.9 g/dL (32.0-36.0); Mean Corpuscular Hemoglobin 29.7 pg (27.0-31.0); Mean Corpuscular Volume 99.3 fL (78.0-98.0); Mean Platelet Volume 6.8 fL (7.4-10.4); Platelet Count 173 thou/uL (130-400); RBC Distribution Width 17.1 % (11.5-14.5); Red Blood Cell (RBC) Count 3.14 mill/uL (4.20-5.40); White Blood Cell (WBC) Count 2.5 thou/uL (4.8-10.8)
[2021-06-07 06:40] LABS: Anion Gap 14 mmol/L (10-20); BUN (Urea Nitrogen) 15 mg/dL (9.8-20.1); Calc. Creatinine Clearance 41 mL/min (70-130); Calcium 6.9 mg/dL (7.8-10.44); Carbon Dioxide 26 mmol/L (23-31); Chloride 103 mmol/L (98-107); Glucose 107 mg/dL (83-110); Potassium 4.7 mmol/L (3.5-5.1); Sodium 138 mmol/L (136-145)
[2021-06-07] MEDS: Aspirin 81 mg Enteric Coated Tablet PO SCH (08:57)
[2021-06-07] MEDS: Lidocaine 5% Patch TD SCH (08:57)
[2021-06-07] MEDS: HYDROcodone/Acetaminophen 5/325 mg Tablet PO PRN ×4 (08:57→21:42)
[2021-06-07] MEDS: Atorvastatin Calcium 40 MG TAB PO SCH (08:59)
[2021-06-07] MEDS: Gabapentin 300 MG CAP PO PRN ×2 (09:02→21:43)
[2021-06-07] MEDS: Nicotine 7 MG PATCH TOP SCH (16:25)
[2021-06-07] MEDS: LIDOCAINE Patch Removal TOP SCH (21:44)
[2021-06-07] MEDS: Melatonin 3 MG TAB PO SCH (21:44)
[2021-06-08] MEDS: Levothyroxine Sodium 75 MCG TAB PO SCH (05:37)
[2021-06-08] MEDS: Budesonide 0.5 MG/2 ML NEB NEB SCH (06:18)
[2021-06-08] MEDS: HYDROcodone/Acetaminophen 5/325 mg Tablet PO PRN ×3 (07:28→21:10)
[2021-06-08] MEDS: Gabapentin 300 MG CAP PO PRN ×2 (09:26→21:09)
[2021-06-08] MEDS: Atorvastatin Calcium 40 MG TAB PO SCH (09:27)
[2021-06-08] MEDS: Aspirin 81 mg Enteric Coated Tablet PO SCH (09:27)
[2021-06-08] MEDS: Lidocaine 5% Patch TD SCH (09:27)
[2021-06-08] MEDS ORDERED: Budesonide 0.5 MG/2 ML NEB NEB PRN (15:13)
[2021-06-08] MEDS: Nicotine 7 MG PATCH TOP SCH (16:09)
[2021-06-08] MEDS: LIDOCAINE Patch Removal TOP SCH (21:09)
[2021-06-08] MEDS: Melatonin 3 MG TAB PO SCH (21:09)
[2021-06-09] MEDS: Levothyroxine Sodium 75 MCG TAB PO SCH (05:54)
[2021-06-09] MEDS: Atorvastatin Calcium 40 MG TAB PO SCH (08:17)
[2021-06-09] MEDS: Aspirin 81 mg Enteric Coated Tablet PO SCH (08:17)
[2021-06-09] MEDS: Gabapentin 300 MG CAP PO PRN ×2 (08:17→21:12)
[2021-06-09] MEDS: Lidocaine 5% Patch TD SCH (08:18)
[2021-06-09] MEDS: HYDROcodone/Acetaminophen 5/325 mg Tablet PO PRN ×3 (08:18→21:11)
[2021-06-09] MEDS: Nicotine 7 MG PATCH TOP SCH (16:16)
[2021-06-09] MEDS: Melatonin 3 MG TAB PO SCH (21:11)
[2021-06-09] MEDS: LIDOCAINE Patch Removal TOP SCH (21:16)
[2021-06-10] MEDS: Levothyroxine Sodium 75 MCG TAB PO SCH (05:55)
[2021-06-10] MEDS: HYDROcodone/Acetaminophen 5/325 mg Tablet PO PRN ×2 (08:12→20:25)
[2021-06-10] MEDS: Atorvastatin Calcium 40 MG TAB PO SCH (08:13)
[2021-06-10] MEDS: Gabapentin 300 MG CAP PO PRN ×2 (08:13→20:24)
[2021-06-10] MEDS: Aspirin 81 mg Enteric Coated Tablet PO SCH (08:14)
[2021-06-10] MEDS: Lidocaine 5% Patch TD SCH (08:14)
[2021-06-10] MEDS: Nicotine 7 MG PATCH TOP SCH (17:13)
[2021-06-10] MEDS: Melatonin 3 MG TAB PO SCH (20:25)
[2021-06-10] MEDS: LIDOCAINE Patch Removal TOP SCH (20:26)
[2021-06-10] MEDS ORDERED: Losartan 25 MG TAB PO SCH (21:00)
[2021-06-11] MEDS: Levothyroxine Sodium 75 MCG TAB PO SCH (05:55)
[2021-06-11] MEDS: Gabapentin 300 MG CAP PO PRN ×2 (08:19→21:19)
[2021-06-11] MEDS: Aspirin 81 mg Enteric Coated Tablet PO SCH (08:19)
[2021-06-11] MEDS: Lidocaine 5% Patch TD SCH (08:19)
[2021-06-11] MEDS: Atorvastatin Calcium 40 MG TAB PO SCH (08:19)
[2021-06-11] MEDS: HYDROcodone/Acetaminophen 5/325 mg Tablet PO PRN ×3 (08:20→21:20)
[2021-06-11] MEDS ORDERED: Losartan 25 MG TAB PO SCH (13:30)
[2021-06-11] MEDS: Nicotine 7 MG PATCH TOP SCH (17:34)
[2021-06-11] MEDS: Melatonin 3 MG TAB PO SCH (21:19)
[2021-06-11] MEDS: LIDOCAINE Patch Removal TOP SCH (21:20)
[2021-06-12] MEDS: Levothyroxine Sodium 75 MCG TAB PO SCH (06:19)
[2021-06-12] MEDS: HYDROcodone/Acetaminophen 5/325 mg Tablet PO PRN ×3 (07:48→20:21)
[2021-06-12] MEDS: Gabapentin 300 MG CAP PO PRN ×2 (07:50→20:20)
[2021-06-12] MEDS: Lidocaine 5% Patch TD SCH (09:14)
[2021-06-12] MEDS: Aspirin 81 mg Enteric Coated Tablet PO SCH (09:14)
[2021-06-12] MEDS: Atorvastatin Calcium 40 MG TAB PO SCH (09:14)
[2021-06-12 10:41] VITALS: BMI 24.0
[2021-06-12] MEDS: Nicotine 7 MG PATCH TOP SCH (17:18)
[2021-06-12] MEDS: Melatonin 3 MG TAB PO SCH (20:20)
[2021-06-12] MEDS ORDERED: Losartan 25 MG TAB PO SCH (21:00)
[2021-06-12] MEDS: LIDOCAINE Patch Removal TOP SCH (21:24)
[2021-06-13] MEDS: Levothyroxine Sodium 75 MCG TAB PO SCH (06:02)
[2021-06-13] MEDS: Gabapentin 300 MG CAP PO PRN ×2 (09:11→20:14)
[2021-06-13] MEDS: HYDROcodone/Acetaminophen 5/325 mg Tablet PO PRN ×3 (09:12→20:14)
[2021-06-13] MEDS: Aspirin 81 mg Enteric Coated Tablet PO SCH (09:17)
[2021-06-13] MEDS: Lidocaine 5% Patch TD SCH (09:17)
[2021-06-13] MEDS: Atorvastatin Calcium 40 MG TAB PO SCH (09:34)
[2021-06-13] MEDS: Nicotine 7 MG PATCH TOP SCH (17:31)
[2021-06-13] MEDS: Melatonin 3 MG TAB PO SCH (20:13)
[2021-06-13] MEDS: LIDOCAINE Patch Removal TOP SCH (20:14)
[2021-06-13] MEDS ORDERED: Losartan Potassium 50 MG TAB PO SCH (21:00)
[2021-06-14] MEDS: Levothyroxine Sodium 75 MCG TAB PO SCH (06:17)
[2021-06-14] MEDS: Lidocaine 5% Patch TD SCH (08:01)
[2021-06-14] MEDS: Atorvastatin Calcium 40 MG TAB PO SCH (08:02)
[2021-06-14] MEDS: HYDROcodone/Acetaminophen 5/325 mg Tablet PO PRN (08:02)
[2021-06-14] MEDS: Gabapentin 300 MG CAP PO PRN (08:04)
[2021-06-14] MEDS: Aspirin 81 mg Enteric Coated Tablet PO SCH (08:04)
[2021-06-14 10:13] VITALS: BP 157/68; TEMP 96.2
== END 2021-06-14 13:07 | disposition home or self-care (01) | DRG 559 ==
LOC: NAV ACUTE 12:26
PROVIDERS: ADMIT Internal Medicine; ATTEND Internal Medicine
DX: S72.002D Fracture of unspecified part of neck of left femur, subsequent encounter for closed fracture with routine healing (principal); A41.9 Sepsis, unspecified organism; J69.0 Pneumonitis due to inhalation of food and vomit; J96.11 Chronic respiratory failure with hypoxia; I25.10 Atherosclerotic heart disease of native coronary artery without angina pectoris; I10 Essential (primary) hypertension; E78.5 Hyperlipidemia, unspecified; M19.90 Unspecified osteoarthritis, unspecified site; G89.29 Other chronic pain; J44.9 Chronic obstructive pulmonary disease, unspecified; F17.210 Nicotine dependence, cigarettes, uncomplicated; M54.9 Dorsalgia, unspecified; E03.9 Hypothyroidism, unspecified; M81.0 Age-related osteoporosis without current pathological fracture; R53.81 Other malaise; D64.9 Anemia, unspecified; E11.42 Type 2 diabetes mellitus with diabetic polyneuropathy; G47.00 Insomnia, unspecified; I95.1 Orthostatic hypotension; Z86.73 Personal history of transient ischemic attack (TIA), and cerebral infarction without residual deficits; W18.30XD Fall on same level, unspecified, subsequent encounter; Z90.710 Acquired absence of both cervix and uterus; Z90.89 Acquired absence of other organs; Z79.51 Long term (current) use of inhaled steroids; Z79.899 Other long term (current) drug therapy
CPT/HCPCS: 36415; 36416; 71045; 80048; 80053; 81001; 83036; 83605; 85025; 87040; 87070; 87086; 87205; 94640; J0696; J1650; J3490; J7030; J7050; J7620; J7626

== ENCOUNTER 2022-04-05 11:33 | Emergency (ER) | payer OTHER ==
[2022-04-05 12:25] LABS: #Eosinphils 0.1 thou/uL (0.0-0.7); #Lymphocytes 0.9 thou/uL (1.20-3.40); #Monocytes 0.3 thou/uL (0.11-0.59); #Neutrophils 2.9 thou/uL (1.40-6.50); %Basophils 0.4 % (0.0-1.0); %Eosinophils 1.2 % (0.0-10.0); %Lymphocytes 21.9 % (21.0-51.0); %Monocytes 6.1 % (0.0-10.0); %Neutrophils 70.4 % (42.0-75.0); Hemoglobin 7.9 g/dL (12.0-16.0); Mean Corpuscular HGB CONC 27.9 g/dL (32.0-36.0); Mean Corpuscular Hemoglobin 26.4 pg (27.0-31.0); Mean Corpuscular Volume 94.8 fL (78.0-98.0); Platelet Count 97 thou/uL (130-400); RBC Distribution Width 17.8 % (11.5-14.5); White Blood Cell (WBC) Count 4.1 thou/uL (4.8-10.8)
[2022-04-05 12:29] LABS: ALT (SGPT) 17 U/L (8-55); AST (SGOT) 21 U/L (5-34); Albumin 3.4 g/dL (3.4-4.8); Alkaline Phosphatase 72 U/L (40-110); Anion Gap 15 mmol/L (10-20); BUN (Urea Nitrogen) 59 mg/dL (9.8-20.1); Bilirubin, Total 0.6 mg/dL (0.2-1.2); Calc. Creatinine Clearance 0 mL/min (70-130); Calcium 8.4 mg/dL (7.8-10.44); Carbon Dioxide 22 mmol/L (23-31); Chloride 104 mmol/L (98-107); Globulin 1.8 g/dL (2.4-3.5); Glucose 102 mg/dL (83-110); Potassium 4.3 mmol/L (3.5-5.1); Protein, Total 5.2 g/dL (5.8-8.1); Sodium 137 mmol/L (136-145)
[2022-04-05] MEDS ORDERED: Pantoprazole 40 MG VIAL ONE (12:51)
[2022-04-05 13:14] LABS: Bilirubin Negative (Negative); Blood, Urine Negative (Negative); Clarity Clear (Clear); Glucose, Urine (Dipstick) 250 mg/dL (Negative); Ketone, Urine Negative (Negative); Leukocyte Negative (Negative); Nitrite Negative (Negative); Protein, Urine (Dipstick) Negative (Neg-Trace); Urobilinogen 0.2 mg/dL (Less than 2); pH, Urine 7.5 (5.0-9.0)
[2022-04-05 14:33] LABS: Hemoglobin 9.1 g/dL (12.0-16.0)
== END 2022-04-05 14:57 | disposition short-term general hospital (02) ==
LOC: NAV ERS 11:33
DX: K92.2 Gastrointestinal hemorrhage, unspecified (principal); D64.9 Anemia, unspecified; I13.0 Hypertensive heart and chronic kidney disease with heart failure and stage 1 through stage 4 chronic kidney disease, or unspecified chronic kidney disease; I50.9 Heart failure, unspecified; N18.30 Chronic kidney disease, stage 3 unspecified; I25.10 Atherosclerotic heart disease of native coronary artery without angina pectoris; J44.9 Chronic obstructive pulmonary disease, unspecified; E03.9 Hypothyroidism, unspecified; E78.5 Hyperlipidemia, unspecified; M81.0 Age-related osteoporosis without current pathological fracture; Z86.73 Personal history of transient ischemic attack (TIA), and cerebral infarction without residual deficits; F17.210 Nicotine dependence, cigarettes, uncomplicated; Z79.899 Other long term (current) drug therapy; Z79.82 Long term (current) use of aspirin
CPT/HCPCS: 71045; 80053; 81003; 82274; 85025; 86850; 86900; 86901; 96374; C9113